=== PATIENT | male | born 1950 | race African-American/Black ===

== ENCOUNTER 2022-06-02 22:49 | Observation (INO) | payer OTHER ==
--- OUTSIDE RECORDS SUMMARY | 2022-06-02 22:52 | XMS REPORT | Continuity of Care Document ---
:1950 Author Organization [facility] Address [address] [place] [address] Dr. [address] [place] [id number] Care Team Providers Name Role Phone MARY Attending Clinician Unavailable MARY Admitting Clinician Unavailable Payers Payer Name Policy Type Policy Number Effective Date Expiration Date S ource Problems This patient has no known problems. Allergies, Adverse Reactions, Alerts This patient has no known allergies or adverse reactions. Medications This patient has no known medications. Procedures This patient has no known procedures. Encounters Start End Encounter Admission Attending Care Care Encounter Source Date/Time Date/Time Type Type Clinicians Facility Department ID 2022-05-11 2022-05-11 Outpatient CHRISTI [place] [id number] [place] 00:00:00 00:00:00 [facility] [id number] [facility] 2020-06-08 2020-06-08 Outpatient CHRISTI CH[place] [id number] [place] 10:09:00 10:09:00 [id number] Results This patient has no known results.
--- NOTE | 2022-06-02 23:51 | EDPHYS ---
Physician Documentation [facility] Name: Ploa Odom Age: 71 yrs Sex: Male : 1950 Arrival Date: 06/02/2022 Time: 22:53 Bed 4 Private MD: ED Physician Santiago Prado HPI: 06/02 23:19 This 71 yrs old Black Male presents to ER via Wheelchair with complaints of CP, Low corner block cutter Beat. 23:19 The patient or guardian reports chest pain that is located primarily in the substernal rn area. Onset: just prior to arrival. The pain does not radiate. Associated signs and symptoms: Pertinent positives: dizziness, Pertinent negatives: cough, headache, shortness of breath, syncope, vomiting. The chest pain is described as "hurts". Duration: The patient or guardian reports a single episode, that is now resolved. Modifying factors: The symptoms are alleviated by nothing. the symptoms are aggravated by nothing. Severity of pain: At its worst the pain was mild in the emergency department the pain has resolved. The patient has not experienced similar symptoms in the past. The patient has been recently seen by a physician:. Patient presents with central chest pain that began prior to arrival. Associated with dizziness. Patient states saw Dr. Adams and is scheduled for heart cath tomorrow morning. Has been seeing Dr. Adams for persistent bradycardia for several months. States chest pain has now resolved prior to arrival. No syncope.. Historical: - Allergies: 23:08 No Known Allergies; kb3 - PMHx: 23:08 Hypertensive disorder; Cerebrovascular accident; kb3 - Immunization history:: Adult Immunizations up to date, Client reports receiving the 2nd dose of the Covid vaccine, Last tetanus immunization: up to date. - Social history:: Smoking status: Patient/guardian denies using tobacco, Patient/guardian denies using alcohol, street drugs. - Family history:: not pertinent. - Hospitalizations: : No recent hospitalization is reported. ROS: 23:19 Constitutional: Negative for fever, chills, and weight loss, Eyes: Negative for injury, rn pain, redness, and discharge, Cardiovascular: Negative for palpitations, and edema, Respiratory: Negative for shortness of breath, cough, wheezing, and pleuritic chest pain, Abdomen/GI: Negative for abdominal pain, nausea, vomiting, diarrhea, and constipation, Back: Negative for injury and pain, MS/Extremity: Negative for injury and deformity, Skin: Negative for injury, rash, and discoloration, Neuro: Negative for headache, numbness, tingling, and seizure. Exam: 23:19 Constitutional: This is a well developed, well nourished patient who is awake, alert, rn and in no acute distress. Head/Face: Normocephalic, atraumatic. Eyes: Periorbital areas with no swelling, redness, or edema. Cardiovascular: Bradycardic, regular, no pulse deficit Respiratory: No increased work of breathing, no retractions or nasal flaring. Abdomen/GI: Soft, non-tender Skin: Warm, dry MS/ Extremity: Pulses equal, no cyanosis. Neurovascular intact. Full, normal range of motion. Equal circumference. Neuro: Awake and alert, GCS 15 06/03 02:39 ECG was reviewed by the Attending Physician. rn Vital Signs: 06/02 23:04 BP 123 / 60; Pulse 50; Resp 18; Temp 97.1; Weight 98.88 kg; Height 6 ft. 0 in. (182.88 kb3 cm); Pain 0/10; 23:27 BP 155 / 69; Pulse 48; Pulse Ox 100% on R/A; aa9 06/03 01:09 BP 160 / 72; Pulse 45; Resp 16 S; Pulse Ox 100% on R/A; aa9 02:33 BP 160 / 75; Pulse 51; Resp 18; Pulse Ox 99% ; kd3 06/02 23:04 Body Mass Index 29.57 (98.88 kg, 182.88 cm) kb3 MDM: 06/02 23:05 Patient medically screened. rn 23:49 Differential diagnosis: acute myocardial infarction, acute pericarditis, coronary rn artery disease pulmonary embolus, stable angina, unstable angina. HEART Score: History: Moderately Suspicious (1), ECG: Normal (0), Age: > or = 65 years (2), Risk Factors: > or = 3 Risk factors for atherosclerotic disease (2), Troponin: < or = 1 x Normal Limit (0), Total Score = 5. Data reviewed: vital signs, nurses notes, lab test result(s), EKG, and as a result, I will admit patient. Counseling: I had a detailed discussion with the patient and/or guardian regarding: the historical points, exam findings, and any diagnostic results supporting the discharge/admit diagnosis, radiology results, the need for further work-up and treatment in the hospital. Admission orders: after a detailed discussion of the patient's condition and case, the admit orders are written by me. 06/02 23:17 Order name: Basic Metabolic Panel; Complete Time: 00:58 rn 06/02 23:17 Order name: CBC with Diff; Complete Time: 00:58 rn 06/02 23:17 Order name: NT PRO-BNP; Complete Time: 00:58 rn 06/02 23:17 Order name: PT-INR; Complete Time: 00:58 rn 06/02 23:17 Order name: Troponin HS; Complete Time: 00:58 rn 06/02 23:17 Order name: SARS-COV-2 Antigen Rapid; Complete Time: 00:58 rn 06/02 23:17 Order name: XRAY Chest (1 view) 06/02 23:17 Order name: EKG; Complete Time: : rn 06/02 23:17 Order name: Cardiac monitoring; Complete Time: 23:23 rn 06/02 23:17 Order name: EKG - Nurse/Tech; Complete Time: 23:23 rn 06/02 23:17 Order name: IV Saline Lock; Complete Time: 00:43 rn 06/02 23:17 Order name: Labs collected and sent; Complete Time: 00:43 rn 06/02 23:17 Order name: O2 Per Protocol; Complete Time: 23:23 rn 06/02 23:17 Order name: O2 Sat Monitoring; Complete Time: 23:23 rn EC/19 02:39 Rate is 46 beats/min. Rhythm is regular. QRS [place] is Normal. NV interval is normal. QRS rn interval is normal. QT interval is normal. No Q waves. T waves are Normal. No ST changes noted. Clinical impression: Sinus bradycardia. Interpreted by me. Reviewed by me. Administered Medications: No medications were administered Disposition Summary: 06/02/22 23:51 Hospitalization Ordered Hospitalization Status: Observation rn Provider: Venus Hooper rn Condition: Stable rn Problem: new rn Symptoms: have improved rn Bed/Room Type: Standard rn Location: Telemetry/MedSurg (observation)(06/03/22 01:48) cg Room Assignment: 214(06/03/22 01:56) cg Diagnosis - Chest pain, unspecified rn - Bradycardia, unspecified rn Forms: - Medication Reconciliation Form rn - SBAR form rn Signatures: Dispatcher [employer] EDSantiago West MD MD rn Garcia, Cindy, RN RN cg Bradberry, Kelly RN RN kb3 Corrections: (The following items were deleted from the chart) 01:06/02 23:51 Telemetry/MedSurg (observation) rn cg 06/03 01:06/02 23:51 rn cg 06/03 01:48 01:25 [facility] ER HOLD cg cg 01:48 01:25 ERHOLD- cg cg 01:56 01:48 cg cg
--- NOTE | 2022-06-02 23:51 | ER ---
Nurse's Notes [facility] Name: Pola Odom Age: 71 yrs Sex: Male : 1950 Arrival Date: 06/02/2022 Time: 22:53 Bed 4 Private MD: Diagnosis: Chest pain, unspecified;Bradycardia, unspecified Presentation: 06/02 23:04 Chief complaint: Patient states: Feeling dizzy, light-headed with low heart rate since kb3 this morning. Spouse states pt is scheduled for cardiac cath in the morning due to low heart rate and dizzy spells. Pt reports mild CP and SOB with symptoms. Coronavirus screen: Vaccine status: Patient reports receiving the 2nd dose of the covid vaccine. Client denies travel out of the [place] in the last 14 days. Ebola Screen: Patient negative for fever greater than or equal to 101.5 degrees Fahrenheit, and additional compatible Ebola Virus Disease symptoms Patient denies exposure to infectious person. Patient denies travel to an Ebola-affected area in the 21 days before illness onset. No symptoms or risks identified at this time. Initial Sepsis Screen: Does the patient meet any 2 criteria? No. Patient's initial sepsis screen is negative. Does the patient have a suspected source of infection? No. Patient's initial sepsis screen is negative. Risk Assessment: Do you want to hurt yourself or someone else? Patient reports no desire to harm self or others. Onset of symptoms was June 02, 2022. 23:04 Method Of Arrival: Wheelchair kb3 23:04 Acuity: TALI 2 kb3 Triage Assessment: 23:08 General: Appears in no apparent distress. comfortable, Behavior is calm, cooperative. kb3 Pain: Denies pain. Historical: - Allergies: 23:08 No Known Allergies; kb3 - PMHx: 23:08 Hypertensive disorder; Cerebrovascular accident; kb3 - Immunization history:: Adult Immunizations up to date, Client reports receiving the 2nd dose of the Covid vaccine, Last tetanus immunization: up to date. - Social history:: Smoking status: Patient/guardian denies using tobacco, Patient/guardian denies using alcohol, street drugs. - Family history:: not pertinent. - Hospitalizations: : No recent hospitalization is reported. Screenin/19 02:34 Abuse screen: Denies threats or abuse. Denies injuries from another. Nutritional kd3 screening: No deficits noted. Tuberculosis screening: No symptoms or risk factors identified. Fall Risk IV access (20 points). Assessment: 06/02 23:12 General: Appears in no apparent distress. comfortable, Behavior is calm, cooperative. ha1 23:12 Pain: Complains of pain in head Pain does not radiate. Pain at worst was 8 out of 10 on ha1 a pain scale. Quality of pain is described as pressure, Pain began yesterday morning Is intermittent, Alleviated by rest, Aggravated by increased activity, Noted to be quiet and calm. follows comand. Neuro: Level of Consciousness is awake, alert, Oriented to person, place, time, situation, Reports dizziness, light headache since yesterday morning. . Cardiovascular: Reports lightheadedness, low heart rate since yesterday morning Heart tones S1 S2 present Capillary refill < 3 seconds Patient's skin is warm and dry. Pulses are all present. Rhythm is sinus bradycardia. Respiratory: Airway is patent Respiratory effort is even, unlabored, Respiratory pattern is regular, symmetrical, Breath sounds are clear bilaterally. GI: No signs and/or symptoms were reported involving the gastrointestinal system. Abdomen is non-distended, obese, Bowel sounds present X 4 quads. : No signs and/or symptoms were reported regarding the genitourinary system. EENT: No signs and/or symptoms were reported regarding the EENT system. Derm: Skin is intact, Skin is normal. Musculoskeletal: No signs and/or symptoms reported regarding the musculoskeletal system. Circulation, motion, and sensation intact. Range of motion: intact in all extremities. 06/03 00:15 Reassessment: Patient and/or family updated on plan of care and expected duration. Pain ha1 level reassessed. Patient is alert, oriented x 3, equal unlabored respirations, skin warm/dry/pink. 01:14 Reassessment: Patient appears in no apparent distress at this time. No changes from ha1 previously documented assessment. Patient and/or family updated on plan of care and expected duration. Pain level reassessed. Patient is alert, oriented x 3, equal unlabored respirations, skin warm/dry/pink. Vital Signs: 06/02 23:04 BP 123 / 60; Pulse 50; Resp 18; Temp 97.1; Weight 98.88 kg; Height 6 ft. 0 in. (182.88 kb3 cm); Pain 0/10; 23:27 BP 155 / 69; Pulse 48; Pulse Ox 100% on R/A; aa9 06/03 01:09 BP 160 / 72; Pulse 45; Resp 16 S; Pulse Ox 100% on R/A; aa9 02:33 BP 160 / 75; Pulse 51; Resp 18; Pulse Ox 99% ; kd3 06/02 23:04 Body Mass Index 29.57 (98.88 kg, 182.88 cm) kb3 ED Course: 06/02 22:53 Patient arrived in ED. jj6 23:04 Santiago Prado MD is Attending Physician. rn 23:08 Triage completed. kb3 23:08 Arm band placed on left wrist. Patient placed in an exam room. kb3 23:23 eKvan Sanches RN is Primary Nurse. as6 23:39 XRAY Chest (1 view) In Process Unspecified. EDMS 23:50 Venus Hooper MD is Hospitalizing Provider. rn 06/03 00:00 SARS-COV-2 Antigen Rapid Sent. aa9 00:05 Inserted saline lock: 20 gauge in left antecubital area, using aseptic technique. ha1 02:34 Patient has correct armband on for positive identification. kd3 02:34 No provider procedures requiring assistance completed. Patient admitted, IV remains in kd3 place. Administered Medications: No medications were administered Medication: 02:33 VIS not applicable for this client. kd3 Outcome: 06/02 23:51 Decision to Hospitalize by Provider. rn 06/03 02:34 Admitted to Med/surg kd3 Condition: stable Discharge instructions given to patient, family, Instructed on follow up and referral plans. the need for admit, Demonstrated understanding of instructions, follow-up care. 02:35 Patient left the ED. kd3 Signatures: Dispatcher [employer] EDMS Santiago Prado MD MD rn Jeffries, Jennifer jj6 Kevan Sanches RN RN as6 Wendy Martin RN RN kd3 Anna Paul RN RN aa9 Kylee Ibrahim RN RN ha1 Ne Canela, RN RN kb3 Corrections: (The following items were deleted from the chart) 01:14 01:02 Pain: Complains of pain in head Pain does not radiate. Pain at worst was 8 out of ha1 10 on a pain scale. Quality of pain is described as pressure, Pain began yesterday morning Is intermittent, Alleviated by rest, Aggravated by increased activity, Noted to be quiet and calm. follows comand 01:02 Neuro: Level of Consciousness is awake, alert, Oriented to person, place, time, ha1 situation, Reports dizziness, light headache since yesterday morning. . 01:02 Cardiovascular: Reports lightheadedness, low heart rate since yesterday morning ha1 Heart tones S1 S2 present Capillary refill < 3 seconds Patient's skin is warm and dry. Pulses are all present. Rhythm is sinus bradycardia : Respiratory: Airway is patent Respiratory effort is even, unlabored, Respiratory [facility] pattern is regular, symmetrical, Breath sounds are clear bilaterally. 01:02 GI: No signs and/or symptoms were reported involving the gastrointestinal system. ha1 Abdomen is non-distended, obese, Bowel sounds present X 4 quads. : : No signs and/or symptoms were reported regarding the genitourinary system. 1 01:02 EENT: No signs and/or symptoms were reported regarding the EENT system. ha1 01:02 Derm: Skin is intact, Skin is normal, 1 01:02 Musculoskeletal: No signs and/or symptoms reported regarding the musculoskeletal [facility] system. Circulation, motion, and sensation intact. Range of motion: intact in all extremities, [facility]
[2022-06-03 00:32] LABS: SARS-CoV-2 Antigen Rapid Res Negative (Negative)
[2022-06-03 00:39] LABS: Absolute Lymphocytes (CBC) 1.7 K/uL (0.7-4.9); Hematocrit 33.9 % (39.6-49.0); Lymphocytes % 30.2 % (15.3-44.8); MCV 89.8 fL (80-100); MPV 7.9 fL (7.6-11.3); RBC Red Blood Cell Count 3.78 M/uL (4.33-5.43)
[2022-06-03 00:42] LABS: Protime INR 1.01
[2022-06-03 00:57] LABS: Potassium 3.9 mmol/L (3.5-5.1); Troponin High Sensitivity 15.8 pg/mL (<58.9)
[2022-06-03] MEDS ORDERED: MORPHINE 4 MG/ML SYR IV PRN (01:50)
[2022-06-03] MEDS ORDERED: ONDANSETRON 4 MG/2 ML VIAL IV PRN (01:50)
[2022-06-03 03:05] VITALS: BMI 29.6
[2022-06-03] MEDS ORDERED: PNEUMOCOCCAL VACCINE 0.5 ML IMVAC ONE (08:00)
--- NOTE | 2022-06-03 08:02 | EKG ---
Test Date: 2022-06-02 Test Time: 23:24:21 Practice Physician: MOMO MEASUREMENT RESULTS: Intervals: Rate: 46 MD: 144 QRSD: 104 QT: 464 QTc: 406 Gary: P: 53 MD: 144 QRS: -25 T: -3 INTERPRETIVE STATEMENTS: Marked sinus bradycardia Abnormal ECG No previous ECG available for comparison Electronically Signed On 06-03-22 08:00:57 CDT by Ryan Mendoza
[2022-06-03 08:45] VITALS: TEMP 97.9
[2022-06-03] MEDS ORDERED: LOSARTAN POTASSIUM 50 MG TABLET PO SCH (09:00)
[2022-06-03] MEDS ORDERED: AMLODIPINE 10 MG TAB PO SCH (09:00)
[2022-06-03] MEDS ORDERED: NA CHLORIDE 0.9% 500 ML ONE (10:19)
[2022-06-03] MEDS ORDERED: HEPA 1000U/500MLS 2,000 UNIT/1,000 ML BAG IV ONE (10:19)
[2022-06-03] MEDS ORDERED: LIDOCAINE 1% MPF 30 ML VIAL ONE (10:19)
--- NOTE | 2022-06-03 10:33 | HP ---
Date of Admission: 06/03/2022 Chief Complaint: Chest pain. History Of Present Illness: This is a 71-year-old very pleasant male patient, who was doing fine in his usual state of health until last night. He came into emergency room with onset of chest pain at rest. Describes his pain as present in the center and lower left to the center of the chest in the p recordial region, like pressure type of feeling. No associated symptoms. Pain lasted for few minute s. After he was evaluated in the emergency room, he was admitted to the hospital. Allergies: NO KNOWN ALLERGIES. Medications: Amlodipine 10 mg daily, aspirin 81 mg daily, atorvastatin 80 mg daily, clopidogrel 75 m g daily, vitamin D3 2000 units daily, ezetimibe 10 mg daily, losartan 100 mg daily, tamsulosin 0.4 mg daily, terazosin 5 mg daily at bedtime. Review of Systems: Cardiovascular: As mentioned above. All other systems reviewed and negative. Past Medical History: Significant for hypertension, hyperlipidemia, impaired fasting glucose, ischem ic right cerebellar stroke on February 02, 2017, peripheral vascular disease, vertebral artery stenosis on the right side, cerebral atherosclerosis, known alcoholic fatty liver disease, chronic kidney dise ase, benign prostatic hypertrophy, osteoarthritis at multiple sites, and anemia. Past Surgical History: Back surgery and neck surgery. Family History: Father , had stroke. Mother , had kidney failure. Brother with myocar dial infarction and sister has a history of stroke. Social History: Negative for smoking. Use of alcohol occasional. Physical Examination: Vital Signs: Height 6 feet, weight 218 pounds. Temperature 97.6, pulse 46, respiratory rate 14, blo od pressure 167/77, oxygen saturation 99%. General: Awake, alert, oriented, not in distress. HEENT: Head atraumatic, normocephalic. Conjunctivae nonerythematous. Sclerae white. Mouth, no thr ush or edema noted. Ears/Nose, no mass, lesion, discharge noted. Neck: Supple. No JVD, lymph nodes, bruit, thyromegaly noted. Lungs: Bilateral good equal air entry. Clear to auscultation. No rhonchi. No rales. Heart: Normal heart sounds, no murmur or gallop. Abdomen: Soft, bowel sounds normal. No guarding, rigidity, tenderness, mass, hepatosplenomegaly, dis tention, or bruit noted. Extremities: No leg edema. No calf tenderness. Skin: No rash, ulcer, cellulitis. Lymphatics: No lymph node enlargement in neck, supraclavicular, infraclavicular region. Neuro: No focal neurological deficit. Chest: Unremarkable. External Genitalia: Deferred. Rectal: Deferred. Laboratory Data: EKG shows sinus bradycardia, no acute ST-T changes. White count 5.8, hemoglobin 11 .6, platelets 207. Sodium 140, potassium 3.9, chloride 107, bicarb 30, BUN 15, creatinine 1.21, gluc ose 127. Troponin 15.8 on the first set, second set 16.2. Impression: 1.Unstable angina. 2.Hypertension. 3.Hyperlipidemia. 4.Cerebral atherosclerosis. 5.Peripheral vascular disease. 6.Vertebral artery stenosis, right-sided. 7.History of right-sided cerebellar stroke. 8.Impaired fasting glucose. 9.Nonalcoholic fatty liver disease. 10.Benign prostatic hypertrophy. 11.Osteoarthritis, multiple sites. 12.Chronic kidney disease, stage 3A. Plan: Admit the patient to hospital for further evaluation and management of this problem. We will go ahead and consult Cardiology for further evaluation and management of this problem. The patient's blood pressure is elevated this morning. We will give 1 dose of amlodipine and losartan, and nurse was instructed to give this medication with few sips of water this morning and I already talked to he r as the patient is n.p.o. since punch box tender is planning to take him to cardiac cath today. Further plan of treatment will depend on cardiac cath finding that punch box tender is planning to do today and plan of treatment was discussed with the patient's and the patient. HEAVEN/MODL Voice ID: [id number]
[2022-06-03] MEDS ORDERED: HEPARIN 5000 UNIT/ML 1 ML VIAL ONE (10:45)
[2022-06-03] MEDS ORDERED: MIDAZOLAM HCL 2 MG/2 ML INJ ONE (10:45)
[2022-06-03] MEDS ORDERED: VERAPAMIL HCL 10 MG/4 ML VIAL IV ONE (10:45)
[2022-06-03] MEDS ORDERED: FENTANYL CITR 100 MCG/2 ML ONE (10:45)
[2022-06-03] MEDS ORDERED: ATROPINE SULF 1 MG/10 ML SYR IV ONE (10:46)
[2022-06-03] MEDS ORDERED: CLOPIDOGREL 75 MG TABLET ONE (10:46)
[2022-06-03] MEDS ORDERED: ASPIRIN 325 MG TAB ONE (10:46)
[2022-06-03] MEDS ORDERED: TICAGRELOR 90 MG TABLET PO ONE (10:46)
[2022-06-03] MEDS ORDERED: HEPARIN 10,000 UNIT/10 ML VIAL IV ONE (10:46)
--- NOTE | 2022-06-03 12:30 | RAD REPORT ---
EXAM DESCRIPTION: RAD - Chest Single View - 06/02/2022 11:37 pm CLINICAL HISTORY: CHEST PAIN. COMPARISON: None. TECHNIQUE: Single view AP chest radiograph(s). FINDINGS: No pulmonary infiltrate identified. No pleural effusion. No pneumothorax. Nonenlarged card iomediastinal silhouette. No significant osseous abnormality. IMPRESSION: No acute cardiopulmonary abnormality identified by radiograph. Electronically signed by: Rin Wolf MD 06/02/2022 11:51 PM CDT Due to temporary technical issues with the PACS/Fluency reporting system, reports are being signed by the in house radiologists without review as a courtesy to insure prompt reporting. The interpreting radiologist is fully responsible for the content of the report.
[2022-06-03 12:58] VITALS: BP 138/65; O2SAT 98
--- NOTE | 2022-06-03 13:12 | OP ---
Date of Procedure: 06/03/2022 Surgeon: ASHWIN RAMON Procedure Performed: Selective coronary angiogram. Indication: Unstable angina. Access: Right radial artery 6-Grenadian closed with TR band. Complications: None. Bleeding: Less than 10 mL. Anesthesia: Total sedation time was 20 minutes. Description Of Procedure: After risks, benefits, and alternatives were explained, the patient was ag lea to the procedure and signed informed consent. The patient was brought into the cardiac catheter ization laboratory, prepped and draped in the usual sterile fashion. Then, we accessed right radial artery using pediatric micropuncture kit, placed 6-Grenadian Slender sheath and took a 5-Grenadian [place] 4. 0 catheter into the aortic root, engaged left main and right coronary artery, took standard views and then removed the catheter and sheath, placed TR band with good hemostasis. Findings: 1.Left main is large and normal. 2.LAD; large vessel, proximal diffuse 20%. Then mid section, there was very long segment. There is a diffuse 50% stenosis and then luminal irregularities. Diagonal branches are with mild 10% to 20% d iffuse disease in all arteries. 3.Left circumflex; medium-size vessel with luminal irregularities and it is non-dominant. 4.RCA; large and dominant with proximal 50%, mid diffuse 40% and the PLB has diffuse 40% stenosis. Conclusion: Moderate nonobstructive coronary artery disease. Plan: Aggressive cardiac risk factor modification and coronary artery disease management medically. SR/MODL Voice ID: [id number] Report ID: [id number]
--- NOTE | 2022-06-04 21:06 | DS ---
Date of Discharge: 06/03/2022 Disposition: Discharged to go home. Discharge Physical Examination: For physical exam, see copy of today's H and P. Discharge Medications And Instructions: 1.Continue all prior home medications. 2.Follow up at my office next week. Final Diagnoses: 1.Unstable angina. 2.Coronary artery disease with angina. 3.Hypertension. 4.Hyperlipidemia. 5.Cerebral atherosclerosis. 6.Peripheral vascular disease. 7.Vertebral artery stenosis, right-sided. 8.History of right-sided cerebellar stroke. 9.Impaired fasting glucose. 10.Nonalcoholic fatty liver disease. 11.Benign prostatic hypertrophy. 12.Osteoarthritis, multiple sites. 13.Chronic kidney disease, stage IIIA. Hospital Course: This is a 71-year-old pleasant male patient, admitted to the hospital with complain ts of chest pain. Please see dictated H and P for more information. After patient was evaluated in the ER, was admitted to the hospital. Cement Storage Worker, Dr. Adams was consulted and he recommended card iac cath to be done on him which was done today and it showed anywhere from 20% to 50% stenosis in mu ltiple different locations, but did not require any angioplasty or stent placement and medical manage ment was recommended by him. After the procedure, patient was stable and I did communicate with card iologist. From his point of view, patient can go home. Medically, patient is stable for discharge a nd I did communicate with the patient's on the phone after the procedure was done and I will see him next week for followup. HEAVEN/MODL Voice ID: [id number] Report ID: [id number]
--- NOTE | 2022-06-05 07:31 | CON ---
Date of Consultation: 06/03/[address] to Dr. Hooper's service on 06/03/2022. Reason For Consultation: Unstable angina. History Of Present Illness: Mr. Odom is 71, had been seen by Dr. Adams who set up for an outpati ent heart catheterization, however, he was admitted the night before with unstable angina symptoms. He has a history of hypertension, CVA, dyslipidemia, benign prostatic hypertrophy. His symptoms were classic for unstable angina with substernal chest pressure, radiating to the arms with exertion, wily rtness of breath, diaphoresis. Past Medical History: As stated above. Allergies: NONE. Review of Systems: Negative. Social History: Negative. Family History: Noncontributory. Medications: At home include: 1.Aspirin. 2.Lipitor. 3.Plavix. 4.Losartan. 5.Flomax. 6.Zetia. 7.Hytrin. Physical Examination: Vital Signs: Stable. He was afebrile. HEENT: Negative. Neck: Supple with no bruit. Chest: Clear to auscultation and percussion. Cardiac: Revealed a regular rhythm and rate with no murmurs, gallops, or rubs. Abdomen: Benign. Extremities: Revealed no clubbing, cyanosis, or edema. Diagnostic Data: His chest x-ray was negative. His EKG showed sinus bradycardia. His creatinine is 1.2. He was COVID negative. His glucose was 127. Impression And Plan: The patient with multiple cardiac risk factors, classic symptoms for unstable a ngina. We will continue his present regimen. Plan a left heart catheterization today by Dr. Adams. The patient understands the risk and the benefits of the procedure and he agrees to proceed. His b lood pressure and dyslipidemia are well controlled. NB/MODL Voice ID: [id number] Report ID: [id number]
== END 2022-06-03 16:35 | disposition home or self-care (01) ==
LOC: ER 22:49 → ERHOLD 06-03 01:09 → 2ND 06-03 02:00
PROVIDERS: ADMIT Internal Medicine; ATTEND Internal Medicine
DX: I25.110 Atherosclerotic heart disease of native coronary artery with unstable angina pectoris (principal); I12.9 Hypertensive chronic kidney disease with stage 1 through stage 4 chronic kidney disease, or unspecified chronic kidney disease; N18.31 Chronic kidney disease, stage 3a; I73.9 Peripheral vascular disease, unspecified; G45.8 Other transient cerebral ischemic attacks and related syndromes; I65.01 Occlusion and stenosis of right vertebral artery; I67.2 Cerebral atherosclerosis; E78.5 Hyperlipidemia, unspecified; R00.1 Bradycardia, unspecified; R73.01 Impaired fasting glucose; K76.0 Fatty (change of) liver, not elsewhere classified; N40.0 Benign prostatic hyperplasia without lower urinary tract symptoms; D64.9 Anemia, unspecified; M15.9 Polyosteoarthritis, unspecified; Z86.73 Personal history of transient ischemic attack (TIA), and cerebral infarction without residual deficits; Z79.02 Long term (current) use of antithrombotics/antiplatelets; Z79.82 Long term (current) use of aspirin; Z79.899 Other long term (current) drug therapy; Z20.822 Contact with and (suspected) exposure to COVID-19; Z82.3 Family history of stroke; Z82.49 Family history of ischemic heart disease and other diseases of the circulatory system
CPT/HCPCS: 93005; 85025; 80048; 36415; 85610; 84484 ×2; 83880; 71045; 93454; 76937; 99285; 87811; C1893; Q9966; J1644 ×2; J2250; J3010; G0378 ×3; J7040